=== PATIENT | female | born 1980 | race Caucasian/White ===

== ENCOUNTER 2022-05-04 17:11 | Emergency (ER) | payer SELFPAY ==
[~2022-05-04] VITALS: Ht 160 cm; Wt 54.5 kg
[2022-05-04 18:47] VITALS: BP 106/78; PULSE 101; TEMP 99.4
== END 2022-05-04 18:47 | disposition home or self-care (01) ==
LOC: COL.ER 17:11
DX: J06.9 Acute upper respiratory infection, unspecified (principal); J45.909 Unspecified asthma, uncomplicated; F17.200 Nicotine dependence, unspecified, uncomplicated; Z20.822 Contact with and (suspected) exposure to COVID-19

== ENCOUNTER 2023-09-12 01:39 | Emergency (ER) | payer SELFPAY ==
[~2023-09-12] VITALS: Ht 160 cm; Wt 59.1 kg
[2023-09-12 01:44] VITALS: TEMP 97.8
[2023-09-12] MEDS ORDERED: Morphine 4 MG/ML VIAL IV ONE (02:15)
[2023-09-12] MEDS ORDERED: NS 1,000 ML IV ONE (02:15)
[2023-09-12 02:31] LABS: URINE APPEARANCE CLEAR (CLEAR/HAZY); URINE BLOOD NEGATIVE (NEGATIVE); URINE COLOR YELLOW (YELLOW); URINE GLUCOSE NEGATIVE (NEGATIVE); URINE KETONE NEGATIVE (NEGATIVE); URINE NITRATE NEGATIVE (NEGATIVE); URINE PROTEIN(semi-quant) NEGATIVE (NEGATIVE)
[2023-09-12 03:00] LABS: BASO # 0.1 K/mm3 (0.0-0.2); BASO % 0.5 % (0.0-2.0); EOS # 0.3 K/mm3 (0.0-0.7); EOS % 2.9 % (0.0-4.0); GRAN # 6.6 K/mm3 (1.4-6.5); GRAN % 63.3 % (42.2-75.2); HEMATOCRIT 42.7 % (37.0-47.0); HEMOGLOBIN 14.4 g/dl (12.5-16.0); LYMPH # 2.7 K/mm3 (1.2-3.4); LYMPH % 25.8 % (20.0-51.0); MEAN CELL VOLUME 90 fl (80.0-100.0); MEAN CORPUSCULAR HEMOGLOBIN 30 pg (27-31); MEAN CORPUSCULAR HGB CONC 34 g/dl (33.0-37.0); MEAN PLATELET VOLUME 9.1 fl (7.4-10.4); MONO # 0.8 K/mm3 (0.1-0.6); MONO % 7.3 % (1.7-9.3); PLATELET COUNT 349 K/mm3 (130-400); RED BLOOD COUNT 4.73 M/mm3 (4.10-5.30); REDCELL DISTRIBUTION WIDTH-CV 12.1 % (11.5-14.5)
[2023-09-12 03:01] LABS: COLLECTION METHOD CLEAN CATCH
[2023-09-12 03:18] LABS: ALBUMIN 3.4 g/dL (3.5-5.0); BILIRUBIN,TOTAL 0.3 mg/dL (0.2-1.2); C-REACTIVE PROTEIN 0.32 mg/dL (0.00-0.50); CALCIUM 8.8 mg/dL (8.4-10.2); CREATININE, serum 0.73 mg/dL (0.57-1.11); POTASSIUM 3.8 mEq/L (3.5-4.5)
[2023-09-12] MEDS ORDERED: NS 50 ML IV SCH (03:42)
[2023-09-12] MEDS ORDERED: Iohexol 300 - 100 ML VIAL IV ONE (03:42)
[2023-09-12] MEDS ORDERED: Home HYDROcodone/Acetaminophen 5/325 MG #4 TABS/PACK PO ONE (05:00)
[2023-09-12 05:17] VITALS: BP 107/77; PULSE 90
== END 2023-09-12 05:21 | disposition home or self-care (01) ==
LOC: COL.ER 01:39
PROVIDERS: Emergency Medicine
DX: N83.201 Unspecified ovarian cyst, right side (principal)
CPT/HCPCS: J2270; J7030; Q9967

== ENCOUNTER 2023-09-24 16:27 | Emergency (ER) | payer SELFPAY ==
[~2023-09-24] VITALS: Ht 157.5 cm; Wt 59.1 kg
[2023-09-24 16:38] VITALS: TEMP 98.2
[2023-09-24 17:18] LABS: BASO % 0.6 % (0.0-2.0); EOS # 0.3 K/mm3 (0.0-0.7); EOS % 3.9 % (0.0-4.0); GRAN # 3.5 K/mm3 (1.4-6.5); GRAN % 52.2 % (42.2-75.2); HEMATOCRIT 42.2 % (37.0-47.0); HEMOGLOBIN 14.4 g/dl (12.5-16.0); LYMPH # 2.4 K/mm3 (1.2-3.4); MEAN CELL VOLUME 90 fl (80.0-100.0); MEAN CORPUSCULAR HEMOGLOBIN 31 pg (27-31); MEAN CORPUSCULAR HGB CONC 34 g/dl (33.0-37.0); MEAN PLATELET VOLUME 9.5 fl (7.4-10.4); MONO # 0.5 K/mm3 (0.1-0.6); PLATELET COUNT 337 K/mm3 (130-400); REDCELL DISTRIBUTION WIDTH-CV 11.7 % (11.5-14.5)
[2023-09-24 17:29] LABS: ALBUMIN 3.6 g/dL (3.5-5.0); BILIRUBIN,TOTAL 0.3 mg/dL (0.2-1.2); C-REACTIVE PROTEIN 0.64 mg/dL (0.00-0.50); CALCIUM 9.5 mg/dL (8.4-10.2); CREATININE, serum 0.78 mg/dL (0.57-1.11); POTASSIUM 3.1 mEq/L (3.5-4.5); TOTAL PROTEIN 7.2 g/dl (6.2-8.1)
[2023-09-24 18:12] LABS: COLLECTION METHOD CLEAN CATCH
[2023-09-24 18:26] VITALS: BP 116/77; PULSE 92
[2023-09-24 18:54] LABS: PH 5.5 (5.0-8.5); URINE APPEARANCE CLEAR (CLEAR/HAZY); URINE BLOOD NEGATIVE (NEGATIVE); URINE COLOR YELLOW (YELLOW); URINE GLUCOSE NEGATIVE (NEGATIVE); URINE KETONE NEGATIVE (NEGATIVE); URINE NITRATE NEGATIVE (NEGATIVE); URINE PROTEIN(semi-quant) NEGATIVE (NEGATIVE); URINE UROBILINOGEN 0.2 E.U/dL (0.2-1.0)
== END 2023-09-24 18:26 | disposition home or self-care (01) ==
LOC: COL.ER 16:27
PROVIDERS: Nurse Practitioner
DX: N93.8 Other specified abnormal uterine and vaginal bleeding (principal); E87.6 Hypokalemia; F17.210 Nicotine dependence, cigarettes, uncomplicated; F17.290 Nicotine dependence, other tobacco product, uncomplicated

== ENCOUNTER 2023-10-27 17:20 | Emergency (ER) | payer SELFPAY ==
[~2023-10-27] VITALS: Ht 157.5 cm; Wt 56.8 kg
[2023-10-27 17:28] VITALS: TEMP 98
[2023-10-27] MEDS ORDERED: NS 1,000 ML IV ONE (17:45)
[2023-10-27 17:54] LABS: BASO % 0.3 % (0.0-2.0); EOS % 0.1 % (0.0-4.0); GRAN # 11.3 K/mm3 (1.4-6.5); GRAN % 81.2 % (42.2-75.2); HEMATOCRIT 45.5 % (37.0-47.0); HEMOGLOBIN 15.3 g/dl (12.5-16.0); LYMPH # 1.6 K/mm3 (1.2-3.4); LYMPH % 11.4 % (20.0-51.0); MEAN CELL VOLUME 93 fl (80.0-100.0); MEAN CORPUSCULAR HEMOGLOBIN 31 pg (27-31); MEAN CORPUSCULAR HGB CONC 34 g/dl (33.0-37.0); MONO # 0.9 K/mm3 (0.1-0.6); MONO % 6.6 % (1.7-9.3); PLATELET COUNT 310 K/mm3 (130-400); RED BLOOD COUNT 4.92 M/mm3 (4.10-5.30); REDCELL DISTRIBUTION WIDTH-CV 12.5 % (11.5-14.5)
[2023-10-27 18:10] LABS: ALBUMIN 3.3 g/dL (3.5-5.0); BILIRUBIN,TOTAL 0.6 mg/dL (0.2-1.2); C-REACTIVE PROTEIN 20.05 mg/dL (0.00-0.50); CALCIUM 9.6 mg/dL (8.4-10.2); CREATININE, serum 0.7 mg/dL (0.57-1.11); POTASSIUM 3.7 mEq/L (3.5-4.5); TOTAL PROTEIN 7.4 g/dl (6.2-8.1)
[2023-10-27] MEDS ORDERED: dexAMETHasone 10 MG/ML VIAL IV ONE (18:15)
[2023-10-27] MEDS ORDERED: Ketorolac 15 MG/ML VIAL IV ONE (18:15)
[2023-10-27] MEDS ORDERED: AUGMENTIN 400100 ML PO (18:56)
[2023-10-27 19:12] VITALS: BP 109/74; PULSE 81
== END 2023-10-27 19:17 | disposition home or self-care (01) ==
LOC: COL.ER 17:20
PROVIDERS: Nurse Practitioner
DX: J02.0 Streptococcal pharyngitis (principal); Z88.2 Allergy status to sulfonamides
CPT/HCPCS: J1100; J1885; J7030